=== PATIENT | female | born 1980 | race Caucasian/White ===

== ENCOUNTER 2021-09-10 13:43 | Outpatient (CLI) | payer BC ==
[2021-09-10 18:42] LABS: BASOPHILS % (AUTO) 0.5 %; EOSINOPHILS # (AUTO) 0.6 10^3/uL (0.0-0.7); EOSINOPHILS % (AUTO) 10.4 %; HCT - HEMATOCRIT 41.3 % (37.0-47.0); HGB - HEMOGLOBIN 14.1 g/dL (12.0-16.0); LYMPHOCYTES # (AUTO) 1.5 10^3/uL (1.5-3.5); LYMPHOCYTES % (AUTO) 25.3 %; MEAN CORPUSCULAR HEMOGLOBIN 31.1 pg (27.0-31.0); MEAN CORPUSCULAR HGB CONC 34.1 g/dL (32.0-36.0); MONOCYTES # (AUTO) 0.9 10^3/uL (0.0-1.0); MONOCYTES % (AUTO) 15.7 %; NEUTROPHILS # (AUTO) 2.9 10^3/uL (1.5-6.6); NEUTROPHILS % (AUTO) 47.9 %; PLT - PLATELET COUNT 254 10^3/uL (130-450); RED BLOOD COUNT 4.54 10^6/uL (4.20-5.40); RED CELL DISTRIBUTION WIDTH 12.7 % (12.0-15.0)
[2021-09-10 19:10] LABS: THYROID STIMULATING HORMONE 1.92 uIU/mL (0.34-5.60)
[2021-09-10 19:11] LABS: ALBUMIN 3.9 g/dL (3.2-5.5); ALBUMIN/GLOBULIN RATIO 1.3 (1.0-2.2); ALKALINE PHOSPHATASE 58 IU/L (42-121); ALT ALANINE AMINOTRANSFERASE 19 IU/L (10-60); AST ASPARTATE AMINOTRANSFERASE 20 IU/L (10-42); BILIRUBIN,TOTAL 0.8 mg/dL (0.2-1.0); BUN - BLOOD UREA NITROGEN 9 mg/dL (6-20); CALCIUM 9.1 mg/dL (8.5-10.3); CARBON DIOXIDE - CO2 26 mmol/L (21-32); CHLORIDE 104 mmol/L (101-111); CHOLESTEROL 204 mg/dL; CREATININE 0.8 mg/dL (0.4-1.0); GFR - MDRD 79 (>89); GLUCOSE 108 mg/dL (70-100); HDL CHOLESTEROL 68 mg/dL; LDL CHOLESTEROL,CALCULATED 127 mg/dL; LDL/HDL RATIO 1.9 (<4.4); POTASSIUM 3.7 mmol/L (3.5-5.0); SODIUM 140 mmol/L (135-145); TOTAL PROTEIN 6.9 g/dL (6.7-8.2); TRIGLYCERIDES 45 mg/dL; VLDL CHOLESTEROL 9 mg/dL
[2021-09-10 19:28] LABS: ESTIMATED AVERAGE GLUCOSE 108 mg/dL (70-100); HEMOGLOBIN A1c% 5.4 % (4.27-6.07)
== END 2021-09-10 13:44 | disposition home or self-care (01) ==
LOC: LAB.N 13:43
PROVIDERS: ATTEND Nurse Practitioner Family
DX: I10 Essential (primary) hypertension (principal); E66.9 Obesity, unspecified; Z13.220 Encounter for screening for lipoid disorders; Z13.1 Encounter for screening for diabetes mellitus
CPT/HCPCS: 36415; 80053; 80061; 83036; 83721; 84443; 85025

== ENCOUNTER 2021-09-13 08:00 | Outpatient (CLI) | payer BC ==
[2021-09-13 20:45] LABS: BASOPHILS % (AUTO) 0.4 %; EOSINOPHILS # (AUTO) 0.4 10^3/uL (0.0-0.7); EOSINOPHILS % (AUTO) 4.1 %; HCT - HEMATOCRIT 41.6 % (37.0-47.0); HGB - HEMOGLOBIN 13.9 g/dL (12.0-16.0); LYMPHOCYTES # (AUTO) 1.7 10^3/uL (1.5-3.5); LYMPHOCYTES % (AUTO) 16.3 %; MEAN CORPUSCULAR HEMOGLOBIN 30.3 pg (27.0-31.0); MEAN CORPUSCULAR HGB CONC 33.4 g/dL (32.0-36.0); MEAN CORPUSCULAR VOLUME 90.8 fL (81.0-99.0); MEAN PLATELET VOLUME 11.8 fL (7.9-10.8); MONOCYTES # (AUTO) 1.3 10^3/uL (0.0-1.0); MONOCYTES % (AUTO) 12.6 %; NEUTROPHILS # (AUTO) 6.9 10^3/uL (1.5-6.6); NEUTROPHILS % (AUTO) 66.3 %; PLT - PLATELET COUNT 261 10^3/uL (130-450); RED BLOOD COUNT 4.58 10^6/uL (4.20-5.40); RED CELL DISTRIBUTION WIDTH 12.8 % (12.0-15.0); WHITE BLOOD COUNT 10.5 x10^3/uL (4.8-10.8)
== END 2021-09-13 23:59 ==
LOC: LAB.N 08:00
PROVIDERS: ATTEND Family Medicine
DX: R10.32 Left lower quadrant pain (principal)
CPT/HCPCS: 36415; 85025

== ENCOUNTER 2021-09-13 16:44 | Outpatient (CLI) | payer BC ==
--- NOTE | 2021-09-14 09:02 | XRAY Report ---
PROCEDURE: Abdomen 2 View X-Ray INDICATIONS: LLQ ABDOMINAL PX TECHNIQUE: 2 views of the abdomen were acquired. COMPARISON: None. FINDINGS: ABDOMEN: Nonspecific bowel gas pattern. Suggestion of jejunal wall thickening in the left abdomen. BONES/SOFT TISSUES: No acute abnormality. IMPRESSION: 1.No evidence of obstruction. 2.Suggestion of jejunal wall thickening, which may reflect an infectious or inflammatory process. Con cigar packer CT imaging for further evaluation. Reviewed by: Tobias Madrid MD on 09/14/2021 9:01 AM PDT Approved by: Tobias Madrid MD on 09/14/2021 9:01 AM PDT Station ID: [id number]
== END 2021-09-13 23:59 | disposition home or self-care (01) ==
LOC: DI.N 16:44
PROVIDERS: ATTEND Family Medicine
DX: R93.5 Abnormal findings on diagnostic imaging of other abdominal regions, including retroperitoneum (principal); R10.32 Left lower quadrant pain
CPT/HCPCS: 36415; 85025

== ENCOUNTER 2021-09-15 07:34 | Outpatient (CLI) | payer BC ==
[2021-09-15] MEDS ORDERED: IOVERSOL 320 50 ML VIAL ONE (07:49)
[2021-09-15] MEDS ORDERED: IOVERSOL 320 100 ML VIAL IVP ONE ×2 (07:49→08:47)
[2021-09-15] MEDS ORDERED: IOVERSOL 320 50 ML VIAL PO ONE (08:47)
--- NOTE | 2021-09-15 11:15 | CT Report ---
PROCEDURE: Abdomen/Pelvis W INDICATIONS: ABDOMINAL PAIN, LLQ CONTRAST: IV CONTRAST: Optiray 320 ml: 100 PO CONTRAST: Optiray 320 ml500 TECHNIQUE: After the administration of oral and intravenous contrast, 5 mm thick sections acquired from the diap hragms to the symphysis. 5 mm thick coronal and sagittal reformats were acquired. For radiation dos e reduction, the following was used: automated exposure control, adjustment of mA and/or kV accordin g to patient size. COMPARISON: None. FINDINGS: Image quality: Excellent. ABDOMEN: Lung bases: Lung bases are clear. Heart size is normal. Solid organs: Liver and spleen are normal in size and enhancement. Gallbladder is unremarkable . Bi liary system is non dilated. Pancreas enhances normally. No adrenal nodules. Kidneys demonstrate n ormal size and enhancement, without hydronephrosis. Peritoneum and bowel: Acute diverticulitis involving the proximal sigmoid colon with associated infla mmatory change in the subjacent fat. No free fluid or air. No abscess cavity identified. Nodes and vessels: No retroperitoneal or mesenteric adenopathy by size criteria. Aorta and inferior vena cava are normal in size. Miscellaneous: No ventral hernias. PELVIS: Genitourinary: Bladder wall thickness is normal. Miscellaneous: No inguinal hernias or adenopathy. Bones: No suspicious bony lesions. No vertebral body compression fractures. Peripherally calcified disc protrusion at L5-S1 results in central canal and lateral recess stenosis. There is also moderat e right foraminal narrowing at this level. IMPRESSION: 1. Acute uncomplicated diverticulitis of the proximal sigmoid colon. 2. Incidental note made of a disc protrusion of some duration at L5-S1 resulting in central canal and lateral recess stenosis. Reviewed by: Edward Gayle MD on 09/15/2021 11:14 AM PDT Approved by: Edward Gayle MD on 09/15/2021 11:14 AM PDT Station ID: [id number]
== END 2021-09-15 07:35 | disposition home or self-care (01) ==
LOC: DI 07:34
PROVIDERS: ATTEND Family Medicine
DX: K57.32 Diverticulitis of large intestine without perforation or abscess without bleeding (principal)
CPT/HCPCS: 74177; Q9967

== ENCOUNTER 2023-05-28 07:56 | Outpatient (CLI) | payer BC | END 2023-05-28 23:59 | disposition short-term general hospital (02) | LOC: EMS 07:56 | DX: R19.7 Diarrhea, unspecified (principal); R42 Dizziness and giddiness; R20.0 Anesthesia of skin; R11.2 Nausea with vomiting, unspecified; R10.817 Generalized abdominal tenderness | CPT/HCPCS: A0425; A0427 ==